=== PATIENT | female | born 1945 | race Caucasian/White ===

== ENCOUNTER → 2017-05-12 | Outpatient (CLI) | payer BC ==
--- NOTE | 2017-05-12 13:54 | MAMMOGRAPHY REPORT ---
BILATERAL DIGITAL DIAGNOSTIC MAMMOGRAM TOMOSYNTHESIS WITH CAD AND LEFT ULTRASOUND: 05/12/2017 CLINICAL HISTORY: 72-year-old woman presents after her physician felt a lump/thickening in the superi or left breast. Patient is unsure of exact location but thinks it is in the superior breast. She re ports a history of fibrocystic change. Also time of annual bilateral screening exam. TECHNIQUE: Bilateral breast tomosynthesis in addition to standard 2D mammography was performed. Curre nt study was also evaluated with a Computer Aided Detection (CAD) system. COMPARISON: Comparison is made to exams dated: 05/02/2016 mammogram, 05/01/2015 mammogram, 04/04/2014 phillip mogram, 03/29/2013 mammogram, 03/14/2011 mammogram, and 03/13/2010 mammogram - [facility]. BREAST COMPOSITION: There are scattered areas of fibroglandular density in both breasts. FINDINGS: The breast parenchymal pattern is similar to prior exams. There is a stable oval 7.5 x 5.3 mm mass in the lateral, middle one third of the left breast on the CC view, which appears similar in size on prior mammograms dating back to at least 03/13/2010, therefore likely benign. No new suspic ious mass, architectural distortion or cluster of microcalcifications is seen bilaterally. Prior to left breast ultrasound palpation was performed throughout the superior left breast. There i s a 4 cm area of thickening in the 1:00 axis, and there was pain on palpation in this area. Real-antonio e high-resolution sonographic evaluation was performed throughout the left breast including the axill a and retroareolar breast, with particular attention to the 1:00 axis in the area of palpable thicken ing. A few scattered anechoic benign simple cysts are identified. In particular, there is a cyst in the 10:00 left breast, 4 cm from the nipple, measuring 3.9 x 2.1 x 3.5 mm. There is an isoechoic so lid lobulated mass in the 3:00 left breast, 2 cm from the nipple, measuring 4.8 x 3.1 x 7.3 mm. 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 However given that it is newly visualized on ultrasound, a short interval follow-up targeted ultraso und is recommend to ensure stability in 6 months. No other discrete solid or cystic mass is seen thr oughout the left breast on ultrasound, particularly within the 1:00 axis. Morphologically normal lym ph nodes are identified in the left axilla without evidence of suspicious adenopathy. IMPRESSION: ACR-BI-RADS CATEGORY 3: PROBABLY BENIGN, ULTRASOUND ACR-BI-RADS CATEGORY 3: PROBABLY AJITH IGN 1. Stable mammographic appearance of the breasts, without definite mammographic evidence of malignan cy. 2. No suspicious mammographic or sonographic abnormality in the 1:00 left breast in an area of palpa ble thickening. It is unclear if this area correlates with the palpable abnormality identified by e patient's physician and clinical correlation is recommended. Given that no suspicious mammographic or sonographic finding was identified, the decision for biopsy should be based on clinical suspicion . 3. There is a benign-appearing solid isoechoic mass in the 3:00 left breast, 2 cm from the nipple, t hought to correlate with a stable mammographic mass. Given that it is newly visualized on ultrasound , a short interval follow-up targeted ultrasound in the 3:00 left breast is recommend to ensure stabi lity in 6 months. These results and recommendations were discussed with the patient at the time of the exam. Approximately 10% of breast cancers are not detected with mammography. A negative mammographic report should not delay biopsy if a clinically suggestive mass is present. Judith Carney M.D. ay/:05/12/2017 12:15:39 Supervisor Pigment Making: Ashly NYE)(Dixie), [facility] letter sent: Follow Up Recommended 3 BI-RADS Code: ACR-BI-RADS Category 3: Probably Benign Ultrasound BI-RADS: ACR-BI-RADS Category 3: Pr obably Benign
== END | disposition home or self-care (01) ==
LOC: C.MAMM 11:16
PROVIDERS: ATTEND Obstetrics & Gynecology
DX: N63 Unspecified lump in breast (principal)

== ENCOUNTER → 2017-06-09 | Outpatient (CLI) | payer BC | END | disposition home or self-care (01) | LOC: C.PATH 08:51 | PROVIDERS: ATTEND Obstetrics & Gynecology | DX: N63 Unspecified lump in breast (principal) ==

== ENCOUNTER → 2017-06-09 | Outpatient (CLI) | payer BC ==
--- NOTE | 2017-06-09 12:00 | Discharge Instructions ---
Discharge Instructions Procedure Procedure Date: Jun 09, 2017. Reason for visit: Left Mass @ 3 O'clock. Discharge Discharge Date: Jun 09, 2017. Discharge Diagnosis: post left 3:00 breast mass ultrasound guided core biopsy Medications Restart Stopped Medication(s): Resume Xarelto today Instructions Activity Recommendations: Additional Limitations (see below) Return to School/Work: no limitations Recommended Home Diet: No Limitations Provider Instructions: ACTIVITY RECOMMENDATIONS: * No lifting, pushing, pulling or exercising the affected side for three days. RETURN TO SCHOOL/WORK: * You may return to work/school after the procedure, but do not perform any strenuous activities for 24 to 48 hours. MEDICATIONS: * Tylenol (two 325 mg) every four to six hours if needed for mild pain (if not allergic to Tylenol). DIET: * Resume previous diet. SPECIAL CARE INSTRUCTIONS: * Keep biopsy site dry for 24 hours. May shower after 24 hours, but do not soak (bathe) incision. * May remove Tegaderm (plastic patch) tomorrow AFTER showering. * Leave the steri-strips on for one week. Allow the steri-strips to fall off by themselves. If not off after one week, you may remove them. You may place a Bandaid crosswise over the strips, if desired. * Apply ice 10 minutes on and 10 minutes off as needed. * Wear a bra at bedtime to sleep more comfortably for 2-3 days. * Your referring physician should have the results after approximately 5 to 7 business days. * Call for unusual bleeding, fever, drainage, etc or if you have any questions call [phone] during normal business hours or after hours call Dr Carney, . FOLLOW UP VISIT: Follow-up with Referring Physician as scheduled. Allergies Coded Allergies: Clindamycin (Verified Allergy, Intermediate, SWELLING, 11/30/13) Erythromycin (Verified Allergy, Intermediate, G.I. DISTRESS, 11/30/13) Penicillins (Verified Allergy, Unknown, HIVES, 09/26/15) Sulfa Antibiotics (Verified Adverse Reaction, Unknown, MADE HER CRAZY, ) Yanci Houston Recommendations: Call your doctor if: * Temperature above 101 degrees * Pain not relieved by pain medicine ordered * There is increased drainage or redness from any incision * You have any unanswered questions or concerns. Your Doctors Instructions noted above were prepared by provider Judith Carney. Patient Signature Section: Patient Instructions Signature Page Rylie Fields Patient (or Guardian) Signature/Date: I have read and understand the instructions given to me by my caregivers. Caregiver/RN/Doctor Signature/Date: The above-named patient and/or guardian has received patient instructions on this date. + Original Patient Signature Page (only) stays with chart. Please make copy for patient.
--- NOTE | 2017-06-09 13:54 | MAMMOGRAPHY REPORT ---
ULTRASOUND GUIDED BIOPSY LEFT BREAST: 06/09/2017 CLINICAL HISTORY: Indeterminate 8 mm isoechoic solid parallel mass in the 3:00 left breast. Patient presents for ultrasound-guided core needle biopsy. COMPARISON: Comparison is made to exams dated: 05/12/2017 ultrasound, 05/12/2017 mammogram, 05/02/2016 m ammogram, 05/01/2015 mammogram, 04/04/2014 mammogram, and 03/29/2013 mammogram - [facility]. PATIENT CONSENT: The procedure, risks and benefits were discussed with the patient and informed conse nt was obtained both verbally and in writing. Specific risks to this procedure include: bleeding, in fection, puncture of adjacent structure, nontarget biopsy, sampling error, pain, metal allergy and me dication reaction. PROCEDURE DESCRIPTION: A time out was performed and the left breast was agreed as the site of biopsy. The skin was prepped and draped in the usual sterile fashion. The solid mass in the 3:00 left breast was chosen as the target for biopsy. Subcutaneous and intraparenchymal 1% buffered lidocaine, with a nd without epinephrine, was administered as local anesthesia. A skin incision was made. Through the incision, 3 samples were taken with a 14 gauge Achieve biopsy device. A ribbon shaped metallic marker was placed at the biopsy site. On the final ultrasound image, the biopsy marker clip is seen within the inferior aspect of the mass. Hemostasis was achieved after manual compression. The patient tole rated the procedure well and there was no immediate complication. The samples were sent to the patho logy department in an appropriately labeled container. Postprocedure left CC and ML tomosynthesis images were obtained. A new ribbon-shaped metallic biopsy marker is seen in the 3:00 middle one third of the left breast, at the site of the biopsied isoechoi c mass identified on ultrasound. Based on the CC projection, the biopsy marker clip appears displace d medially by 8 mm, as it may have migrated along the biopsy tract after placement during compression . No significant post biopsy hematoma is identified, therefore the patient can resume Xarelto as per directed. IMPRESSION: ULTRASOUND GUIDED BIOPSY Status post ultrasound guided core biopsy of an indeterminate isoechoic solid mass in the 3:00 left b reast, with biopsy marker placed at the site. The patient will receive notification of the biopsy results from her referring physician. Judith Carney M.D. ay/:06/09/2017 12:54:54 Glass Production Machine Operator: Izaiah NYE)(M), [facility]
--- NOTE | 2017-06-09 13:57 | MAMMOGRAPHY REPORT ---
UNILATERAL LEFT DIGITAL DIAGNOSTIC MAMMOGRAM TOMOSYNTHESIS: 06/09/2017 CLINICAL HISTORY: Status post ultrasound-guided core biopsy of an indeterminate solid mass in the 3:0 0 left breast. Please refer to the report from left breast ultrasound guided core biopsy performed at the same time for full detail. IMPRESSION: POST PROCEDURE IMAGING FOR MARKER PLACEMENT Please refer to the report from left breast ultrasound guided core biopsy performed at the same time for full detail. Approximately 10% of breast cancers are not detected with mammography. A negative mammographic report should not delay biopsy if a clinically suggestive mass is present. Judith Carney M.D. ay/:06/09/2017 12:02:14 Drapery Examiner: Izaiah SANCHEZ(Jayant)(M), [facility] BI-RADS Code: Post Procedure Imaging For Marker Placement
== END | disposition home or self-care (01) ==
LOC: C.MAMM 11:08
PROVIDERS: ATTEND Obstetrics & Gynecology
DX: N63 Unspecified lump in breast (principal); D24.2 Benign neoplasm of left breast

== ENCOUNTER → 2018-06-02 | Outpatient (CLI) | payer BC ==
--- NOTE | 2018-06-02 14:56 | MAMMOGRAPHY REPORT ---
BILATERAL DIGITAL DIAGNOSTIC MAMMOGRAM TOMOSYNTHESIS WITH CAD AND TARGETED LEFT ULTRASOUND: 06/02/2018 CLINICAL HISTORY: 73-year-old woman presents at time of annual bilateral examination. She underwent u ltrasound-guided core biopsy of a left 3:00 breast mass on 06/09/2017, which yielded a benign fibroaden rosana. Patient also underwent fine-needle aspiration based on palpation in the pathology department for a palpable area noted by her provider, and these pathology results were also benign. TECHNIQUE: Bilateral CC and MLO 2D and tomosynthesis images were obtained. Current study was also ev aluated with a Computer Aided Detection (CAD) system. COMPARISON: Comparison is made to exams dated: 06/09/2017 mammogram, 05/12/2017 mammogram, 05/02/2016 phillip mogram, 05/01/2015 mammogram, 04/04/2014 mammogram, and 03/29/2013 mammogram - [facility]. BREAST COMPOSITION: There are scattered areas of fibroglandular density in both breasts. FINDINGS: There is a stable ribbon-shaped biopsy marker clip in the 3:00 middle one third of the left breast, denoting the area of biopsy-proven fibroadenoma. There are a few scattered benign punctate microcalcifications in the left breast. An 8 x 5 mm nodular asymmetry in the lateral, middle one thi rd of the left breast on the cc view, located 11 mm lateral to the biopsy marker clip is stable in ap pearance dating back to the 2016, 2013, 2013, 2012, 2011, 2010 and 2009 mammograms, suggesting a jennifer gn mass or normal fibroglandular tissue. There is no evidence of a new suspicious mass, asymmetry, a robbie of architectural distortion or suspicious calcifications bilaterally. Targeted ultrasound was performed in the 3:00, 4:00 and 5:00 axes of the left breast. A parallel cir cumscribed, gently lobulated solid appearing hypoechoic mass is again seen in the left 3:00 breast, 2 cm from the nipple, measuring 5.6 x 2.9 x 6.7 mm. This is stable to minimally decreased in size com paring it to the prebiopsy ultrasound and is compatible with a benign fibroadenoma. No other discret e solid or cystic masses identified. IMPRESSION: ACR BI-RADS CATEGORY 2: BENIGN, ULTRASOUND ACR BI-RADS CATEGORY 2: BENIGN 1. Stable mammographic appearance of the breasts including post biopsy changes in the 3:00 axis with biopsy marker clip in place, and a stable 8 x 5 mm nodular asymmetry in the lateral left breast on t he cc view, that appears stable dating back to at least 2008, therefore considered benign. There is no mammographic evidence of malignancy in the breasts. 2. Stable sonographic appearance of a biopsy-proven fibroadenoma in the 3:00 left breast, without ot her suspicious abnormality seen in the 3:00 to 5:00 axes on targeted ultrasound. 3. Recommend bilateral screening mammography in 1 year. Some breast cancers are not detected with mammography. A negative mammographic report should not angelo y biopsy if a clinically suggestive mass is present. Judith Carney M.D. ay/:06/02/2018 11:59:58 Gas Generator Operator: POPEYE Pierson)(Dixie), [facility] letter sent: Normal 1/2 OVERALL STUDY BIRADS: 2 Benign
== END | disposition home or self-care (01) ==
LOC: C.MAMM 11:04
PROVIDERS: ATTEND Obstetrics & Gynecology
DX: N64.89 Other specified disorders of breast (principal); D24.2 Benign neoplasm of left breast